=== PATIENT | female | born 1950 | race Caucasian/White ===

== ENCOUNTER 2017-01-09 19:18 | Emergency (ER) | payer MEDICARE, OTHER ==
[~2017-01-09] VITALS: Ht 157.5 cm; Wt 107.0 kg
[~2017-01-09 19:18] MED LIST: CADU5TAB2 PO; CHOL50006 PO; DIAZ5 PO; EYEDRO EACH EYE; HYZA100T4 PO; LISI10TA PO; MECL25CH PO; MONT10TA2 PO; NEXI40CA PO; TOPI25TA2 PO; XYZA5TAB2 PO
[2017-01-09 19:25] VITALS: BP 188/87; PULSE 65; RESP 16; TEMP 98.6; O2SAT 96
[2017-01-09] MEDS ORDERED: CADU5TAB2 PO (19:37)
[2017-01-09] MEDS ORDERED: MECL-62 PO (19:37)
[2017-01-09] MEDS ORDERED: NEXI40CA PO (19:37)
--- NOTE | 2017-01-09 20:11 | PD ---
HPI Chief Complaint: Injury Time Seen by Provider: 19:39 Travel History International Travel<30 days: No Contact w/Intl Traveler<30days: No Traveled to known affect area: No History of Present Illness HPI 66-year-old female presents to the emergency department for evaluation of left wrist pain status post trip and fall 2 days ago. Patient reports she tripped on uneven [place]ander falling onto a left outstretched hand. She has had continued pain within the left wrist. She denies numbness/tingling/weakness extremity. Pain is moderate. Aggravated by movement, relieved with rest. She denies head injury or loss of consciousness. Patient is not anticoagulated. She denies headache, visual changes, neck pain, chest pain, shortness of breath , abdominal pain. PFSH Past Medical History Cardiovascular Problems: Yes (HTN) High Cholesterol: Yes Diminished Hearing: No GERD: Yes Glaucoma: Yes Hypertension: Yes Reproductive: Yes (VAGINAL BLEEDING ) Immunizations Current: Yes Tetanus Vaccination: < 5 Years Influenza Vaccination: No ?: Not Menopausal: Yes Tubal Ligation: Yes Past Surgical History Abdominal Surgery: Yes (UMBILICAL HERNIA) Eye Surgery: Yes (LASIK) Tonsillectomy: Yes Other Surgery: Yes (hernia repair, cysts removed left ankle and right wrist ) Social History Alcohol Use: Yes (occassional) Tobacco Use: No Substance Use: No Allergies-Medications (Allergen,Severity, Reaction): Coded Allergies: Sulfa (Sulfonamide Antibiotics) (Unverified Allergy, Mild, NAUSEA, 01/09/17 ) morphine (Unverified Allergy, Unknown, 01/09/17) Reported Meds & Prescriptions Reported Meds & Active Scripts Active Reported Meclizine (Meclizine HCl) 25 Mg Tab 25 Mg PO DIRECTED PRN Nexium (Esomeprazole DR) 40 Mg Capdr 40 Mg PO DAILY Caduet (Amlodipine-Atorvastatin) 5-20 Mg Tab 1 Tab PO DAILY [Eye Drops] 1 Drop EACH EYE HS FOR GLAUCOMA Review of Systems Except as stated in HPI: all other systems reviewed are Neg Physical Exam Narrative GENERAL: This is a well-nourished, well-developed patient, in no apparent distress. HEAD: Atraumatic. Normocephalic. No temporal or scalp tenderness. NECK: Supple, nontender. No meningeal signs. Trachea midline. No JVD or lymphadenopathy. No cervical midline tenderness. CARDIOVASCULAR: Regular rate and rhythm without murmurs, gallops, clicks or rubs. RESPIRATORY: Clear to auscultation. Breath sounds equal bilaterally. No wheezes , rales, or rhonchi heard. CHEST: No rib tenderness or crepitus. GASTROINTESTINAL: Abdomen soft, non-tender, nondistended. Positive bowel sounds. No hepato-splenomegaly, or palpable masses. No guarding. MUSCULOSKELETAL: No cyanosis, or edema. Left upper extremity: Tenderness to the lateral aspect of the wrist. No deformity noted. Patient has full range of motion. Normal sensation. Patient is able to flex and extend the wrist and fingers. 2+ distal pulses. Brisk cap refill BACK: Nontender without obvious deformity. No CVA tenderness. No midline spine tenderness. Data Data Last Documented VS Vital Signs Date Time Temp Pulse Resp B/P (MAP) Pulse Ox O2 Delivery O2 Flow Rate FiO2 01/09/17 19:53 18 Room Air 01/09/17 19:39 (120) 01/09/17 19:25 98.6 65 96 Orders Orders Wrist, Complete ([id number]) (01/09/17 ) Splint Or Brace Apply/Monitor (01/09/17 20:59) [facility] Medical Decision Making Medical Screen Exam Complete: Yes Emergency Medical Condition: Yes Differential Diagnosis Left wrist fracture versus sprain versus strain versus contusion Narrative Course 66-year-old female presents to the emergency department for evaluation of left wrist injury 2 days ago. On exam patient has minimal swelling and mild tenderness to the lateral aspect of the wrist. The joint is stable and normal alignment. 2+ distal pulses. Normal sensation and range of motion. X-ray pending X-ray of the left wrist is negative for fracture. Patient be treated for wrist sprain. Patient put in a cock-up splint. Instructed to ice and elevate the extremity. NSAIDs as as needed for pain. Follow-up with PCP. Diagnosis Primary Impression: Left wrist sprain Qualified Codes: S63.502A - Unspecified sprain of left wrist, initial encounter Referrals: Primary Care Physician Additional Instructions: Ice and elevate the extremity. With a splint for immobilization for one week. Take [id number] Motrin 600-800 milligrams every 6-8 hours as needed for pain Disposition: 01 DISCHARGE HOME Condition: Stable Latasha Medel Jan 09, 2017 20:11
--- NOTE | 2017-01-09 20:19 | RADRPT ---
EXAM DATE/TIME: 01/09/2017 20:00 [place] COMPARISON: No previous studies available for comparison. INDICATIONS : Left lateral wrist pain post fall. MEDICAL HISTORY : None. SURGICAL HISTORY : None. ENCOUNTER: Initial ACUITY: 2 days PAIN SCORE: 8/10 LOCATION: Left upper extremity FINDINGS: No fracture or acute appearing malalignment seen of the left foot. There is moderate to severe radiocarpal, intercarpal and first carpometacarpal chronic appearing arth ropathy. Rheumatoid would be in the differential. CONCLUSION: No fracture or acute malalignment seen of the left wrist. Generalized chronic appearing arthropathy a s above. Phani Calloway MD on January 09, 2017 at 20:16 Board Certified Radiologist. This report was verified electronically.
== END 2017-01-09 21:57 | disposition home or self-care (01) ==
LOC: PHEFT 19:18
DX: S63.502A Unspecified sprain of left wrist, initial encounter (principal); W01.0XXA Fall on same level from slipping, tripping and stumbling without subsequent striking against object, initial encounter; I10 Essential (primary) hypertension; K21.9 Gastro-esophageal reflux disease without esophagitis
CPT/HCPCS: 73110; 99283; L3908

== ENCOUNTER 2017-07-09 01:01 | Emergency (ER) | payer MEDICARE, OTHER ==
[~2017-07-09] VITALS: Ht 157.5 cm; Wt 100.0 kg
[~2017-07-09 01:01] MED LIST changes: -CHOL50006 PO; -DIAZ5 PO; -HYZA100T4 PO; -LISI10TA PO; +MECL-62 PO; -MECL25CH PO; -MONT10TA2 PO; -TOPI25TA2 PO; -XYZA5TAB2 PO
[2017-07-09 01:09] VITALS: BP 203/93; PULSE 62; RESP 16; TEMP 97.8; O2SAT 99
--- NOTE | 2017-07-09 01:28 | PD ---
HPI Chief Complaint: Dizziness Time Seen by Provider: 01:28 Travel History International Travel<30 days: No Contact w/Intl Traveler<30days: No Traveled to known affect area: No History of Present Illness HPI 66-year-old female arrives with vertiginous dizziness. She also has tenderness. She reports a history of vertigo. Symptoms are severe tonight. This started after she ate [employer] which she believes might been spoiled. She vomited multiple times. No chest pain or shortness of breath. No vomiting. No fever. PFSH Past Medical History Cardiovascular Problems: Yes (HTN) High Cholesterol: Yes Diminished Hearing: No GERD: Yes Glaucoma: Yes Hypertension: Yes Reproductive: Yes (VAGINAL BLEEDING ) Immunizations Current: Yes Menopausal: Yes Tubal Ligation: Yes Past Surgical History Abdominal Surgery: Yes (UMBILICAL HERNIA) Eye Surgery: Yes (LASIK) Tonsillectomy: Yes Other Surgery: Yes (hernia repair, cysts removed left ankle and right wrist ) Social History Alcohol Use: Yes (occassional) Tobacco Use: No Substance Use: No Allergies-Medications (Allergen,Severity, Reaction): Coded Allergies: Sulfa (Sulfonamide Antibiotics) (Unverified Allergy, Mild, NAUSEA, 01/09/17 ) morphine (Unverified Allergy, Unknown, 01/09/17) Reported Meds & Prescriptions Reported Meds & Active Scripts Active Macrobid (Nitrofurantoin Monoh/Nitrofur Macro) 100 Mg Cap 100 Mg PO BID 5 Days Ativan (Lorazepam) 0.5 Mg Tab 0.5 Mg PO Q8H PRN Reported Meclizine (Meclizine HCl) 25 Mg Tab 25 Mg PO DIRECTED PRN Nexium (Esomeprazole DR) 40 Mg Capdr 40 Mg PO DAILY Caduet (Amlodipine-Atorvastatin) 5-20 Mg Tab 1 Tab PO DAILY [Eye Drops] 1 Drop EACH EYE HS FOR GLAUCOMA Review of Systems Except as stated in HPI: all other systems reviewed are Neg General / Constitutional: No: Fever Physical Exam Narrative GENERAL: 66-year-old female pleasant well-nourished well-developed moderate distress Vital Signs Date Time Temp Pulse Resp B/P (MAP) Pulse Ox O2 Delivery O2 Flow Rate FiO2 07/09/17 01:09 97.8 62 16 203/93 (129) 99 SKIN: Warm and dry. HEAD: Atraumatic. Normocephalic. EYES: Pupils equal and round. No scleral icterus. No injection or drainage. ENT: No nasal bleeding or discharge. Mucous membranes pink and moist. Tympanic membrane pink and intact bilaterally with clear visualization of bony landmarks. NECK: Trachea midline. No JVD. CARDIOVASCULAR: Regular rate and rhythm. RESPIRATORY: No accessory muscle use. Clear to auscultation. Breath sounds equal bilaterally. GASTROINTESTINAL: Abdomen soft, non-tender, nondistended. Hepatic and splenic margins not palpable. MUSCULOSKELETAL: Extremities without clubbing, cyanosis, or edema. No obvious deformities. NEUROLOGICAL: Awake and alert. No obvious cranial nerve deficits. Motor grossly within normal limits. Five out of 5 muscle strength in the arms and legs. Normal speech. PSYCHIATRIC: Appropriate mood and affect; insight and judgment normal. Data Data Last Documented VS Vital Signs Date Time Temp Pulse Resp B/P (MAP) Pulse Ox O2 Delivery O2 Flow Rate FiO2 07/09/17 01:09 97.8 62 16 203/93 (129) 99 Orders Orders Electrocardiogram (07/09/17 01:52) Complete Blood Count With Diff (07/09/17 01:52) Comprehensive Metabolic Panel (07/09/17 01:52) Iv Access Insert/Monitor (07/09/17 01:52) Urine Culture (07/09/17 01:52) Urinalysis - C+S If Indicated (07/09/17 01:54) Lorazepam Inj (Ativan Inj) (07/09/17 02:30) Meclizine (Antivert) (07/09/17 02:30) Sodium Chlor 0.9% 1000 Ml Inj (Ns 1000 M (07/09/17 02:30) Potassium Chloride (Kcl) (07/09/17 04:30) Ed Discharge Order (07/09/17 04:41) Labs Laboratory Tests Test 07/09/17 01:55 07/09/17 04:24 White Blood Count 8.9 TH/MM3 Red Blood Count 4.66 MIL/MM3 Hemoglobin 13.6 GM/DL Hematocrit 39.2 % Mean Corpuscular Volume 84.1 FL Mean Corpuscular Hemoglobin 29.1 PG Mean Corpuscular Hemoglobin Concent 34.6 % Red Cell Distribution Width 13.9 % Platelet Count 217 TH/MM3 Mean Platelet Volume 9.0 FL Neutrophils (%) (Auto) 76.4 % Lymphocytes (%) (Auto) 17.2 % Monocytes (%) (Auto) 5.3 % Eosinophils (%) (Auto) 0.6 % Basophils (%) (Auto) 0.5 % Neutrophils # (Auto) 6.8 TH/MM3 Lymphocytes # (Auto) 1.5 TH/MM3 Monocytes # (Auto) 0.5 TH/MM3 Eosinophils # (Auto) 0.1 TH/MM3 Basophils # (Auto) 0.0 TH/MM3 CBC Comment DIFF FINAL Differential Comment Blood Urea Nitrogen 16 MG/DL Creatinine 0.68 MG/DL Random Glucose 113 MG/DL Total Protein 7.1 GM/DL Albumin 3.6 GM/DL Calcium Level 8.8 MG/DL Alkaline Phosphatase 76 U/L Aspartate Amino Transf (AST/SGOT) 14 U/L Alanine Aminotransferase (ALT/SGPT) 14 U/L Total Bilirubin 0.3 MG/DL Sodium Level 141 MEQ/L Potassium Level 3.4 MEQ/L Chloride Level 102 MEQ/L Carbon Dioxide Level 29.3 MEQ/L Anion Gap 10 MEQ/L Estimat Glomerular Filtration Rate 86 ML/MIN Urine Color LIGHT-YELLOW Urine Turbidity CLEAR Urine pH 6.5 Urine Specific [place] 1.007 Urine Protein NEG mg/dL Urine Glucose (UA) NEG mg/dL Urine Ketones NEG mg/dL Urine Occult Blood NEG Urine Nitrite NEG Urine Bilirubin NEG Urine Urobilinogen LESS THAN 2.0 MG/DL Urine Leukocyte Esterase TRACE Urine RBC LESS THAN 1 /hpf Urine WBC 1 /hpf Urine Squamous Epithelial Cells 5 /hpf Urine Bacteria RARE /hpf Urine Hyaline Casts 1 /lpf Urine Mucus FEW /lpf Microscopic Urinalysis Comment CULT NOT INDICATED MDM Medical Decision Making Medical Screen Exam Complete: Yes Emergency Medical Condition: Yes Medical Record Reviewed: Yes Differential Diagnosis Peripheral vertigo, central vertigo, electrolyte imbalance, dehydration Narrative Course CBC & BMP Diagram 07/09/17 01:55 Total Protein 7.1, Albumin 3.6, Calcium Level 8.8, Alkaline Phosphatase 76, Aspartate Amino Transf (AST/SGOT) 14 L, Alanine Aminotransferase (ALT/SGPT) 14, Total Bilirubin 0.3 Patient arrives of vertigo. She received Ativan IV fluids and meclizine. Symptoms well controlled. UA shows possible UTI Macrobid script Diagnosis Primary Impression: Vertigo Additional Impressions: Vomiting Qualified Codes: R11.10 - Vomiting, unspecified Hypokalemia Cystitis Referrals: Primary Care Physician call for appointment Med/Other Pt SpecificInfo: Prescription(s) given Scripts Nitrofurantoin Monohydrate Macrocrystals (Macrobid) 100 Mg Cap 100 MG PO BID for Infection for 5 Days, #10 CAP 0 Refills Prov: William Nickerson MD 07/09/17 Lorazepam (Ativan) 0.5 Mg Tab 0.5 MG PO Q8H Y for VERTIGO, #20 TAB 0 Refills Prov: William Nickerson MD 07/09/17 Disposition: 01 DISCHARGE HOME Condition: Stable William Nickerson MD Jul 09, 2017 01:28
[2017-07-09 02:23] LABS: AUTOMATED NEUTROPHIL # 6.8 TH/MM3 (1.8-7.7); BASOPHIL % 0.5 % (0.0-2.0); EOSINOPHIL # 0.1 TH/MM3 (0-0.4); EOSINOPHIL % 0.6 % (0.0-4.0); HEMATOCRIT 39.2 % (35.0-46.0); HEMOGLOBIN 13.6 GM/DL (11.6-15.3); LYMPH % 17.2 % (9.0-44.0); LYMPHOCYTE # 1.5 TH/MM3 (1.0-4.8); MEAN CELL VOLUME 84.1 FL (80.0-100.0); MEAN CORPUSCULAR HEMOGLOBIN 29.1 PG (27.0-34.0); MEAN CORPUSCULAR HGB CONC 34.6 % (32.0-36.0); MONO % 5.3 % (0.0-8.0); MONOCYTE # 0.5 TH/MM3 (0-0.9); NEUT % 76.4 % (16.0-70.0); PLATELET COUNT 217 TH/MM3 (150-450); RED BLOOD COUNT 4.66 MIL/MM3 (4.00-5.30); RED CELL DISTRIBUTION WIDTH 13.9 % (11.6-17.2); WHITE BLOOD COUNT 8.9 TH/MM3 (4.0-11.0)
[2017-07-09] MEDS ORDERED: SODIUM CHLOR 0.9% 1000 ML INJ 1,000 ML IV ONE (02:30)
[2017-07-09] MEDS ORDERED: MECLIZINE HCL 25 MG TAB PO ONE (02:30)
[2017-07-09] MEDS ORDERED: LORazepam 2 MG/ML VIAL IV PUSH ONE (02:30)
[2017-07-09 02:49] LABS: ALBUMIN 3.6 GM/DL (3.4-5.0); ALT (GPT) 14 U/L (10-53); AST (GOT) 14 U/L (15-37); BICARBONATE 29.3 MEQ/L (21.0-32.0); BLOOD UREA NITROGEN 16 MG/DL (7-18); CALCIUM 8.8 MG/DL (8.5-10.1); CHLORIDE 102 MEQ/L (98-107); CREATININE 0.68 MG/DL (0.50-1.00); GLOMERULAR FILTRATION RATE 86 ML/MIN (>89); GLUCOSE,RANDOM 113 MG/DL (74-106); SODIUM (NA) 141 MEQ/L (136-145)
[2017-07-09 02:52] LABS: ALKALINE PHOSPHATASE 76 U/L (45-117); TOTAL BILIRUBIN ADULT 0.3 MG/DL (0.2-1.0); TOTAL PROTEIN 7.1 GM/DL (6.4-8.2)
[2017-07-09] MEDS ORDERED: LORA-392 PO (04:26)
[2017-07-09] MEDS ORDERED: POTASSIUM CHLORIDE 20 MEQ CONTROLLED RELEASE TAB PO ONE (04:30)
[2017-07-09 04:35] LABS: BACTERIA, URINE RARE /hpf; BILIRUBIN, URINE NEG (NEG); BLOOD, URINE NEG (NEG); GLUCOSE,URINE NEG (NEG); HYALINE CAST, URINE 1 /lpf (RARE); KETONE, URINE NEG (NEG); MUCUS URINE FEW /lpf (OCC); NITRITE,URINE NEG (NEG); PH, URINE 6.5 (5.0-8.5); SQUAMOUS EPITHELIAL CELL URINE 5 /hpf (0-5); URINE COLOR LIGHT-YELLOW (YELLW/STRAW); URINE LEUKOCYTE ESTERASE TRACE (NEG)
[2017-07-09] MEDS ORDERED: MACR100C2 PO (04:40)
--- NOTE | 2017-07-09 13:54 | EKG ---
Date Performed: 07/09/2017 Time Performed: 02:01:09 PTAGE: 66 years EKG: SINUS BRADYCARDIA BORDERLINE ECG NO PREVIOUS TRACING DOCTOR: Adrianna Beck Interpretating Date/Time 07/09/2017 13:51:18
== END 2017-07-09 05:06 | disposition home or self-care (01) ==
LOC: NEPE 01:01
DX: R42 Dizziness and giddiness (principal); R11.10 Vomiting, unspecified; E87.6 Hypokalemia; N30.90 Cystitis, unspecified without hematuria; R00.1 Bradycardia, unspecified; I10 Essential (primary) hypertension; E78.00 Pure hypercholesterolemia, unspecified; K21.9 Gastro-esophageal reflux disease without esophagitis; H40.9 Unspecified glaucoma
CPT/HCPCS: 80053; 81001; 85025; 87086; 93005; 96361; 96374; 99284; J2060; J7030